=== PATIENT | female | born 1945 | race American Indian/Alaskan Native ===

== ENCOUNTER 2018-06-13 10:17 | Outpatient (CLI) | payer MEDICARE ==
--- NOTE | 2018-06-14 09:41 | Ultrasound Report ---
Thyroid sonogram: History: Nontoxic goiter. Findings: Right lobe measures 6.8 x 4.6-5.5 cm. Left lobe measures 4.7 x 2.7 cm. The isthmus appears normal and measures 2.3 cm. There is complex mass, predominantly cystic, noted at the right mid lobe measuring 5 x 2.1 x 5 cm. There is there is isoechoic circumscribed mass measuring 1.5 x 1.5 x 1.7 cm at the upper border of right thyroid lobe. There is faintly visualized surrounding hypoechoic capsule. No abnormal color flow is seen. There multiple nodule identified at left lobe which are benign. Maximum diameter 1.1 cm Impression: Multinodular goiter. Six-month followup recommended.
== END 2018-06-13 10:18 | disposition home or self-care (01) ==
LOC: US 10:17
PROVIDERS: ATTEND Family Medicine
DX: E04.2 Nontoxic multinodular goiter (principal)
CPT/HCPCS: 76536